=== PATIENT | male | born 1980 | race American Indian/Alaskan Native ===

== ENCOUNTER 2020-07-05 10:11 | Emergency (ER) | payer SELFPAY ==
--- NOTE | 2020-07-05 10:15 | Emergency Department Report ---
Blank Doc - Documentation Documentation: 40-year-old male that presents with facial abscess. exam: induration noted on exam to right lower mandible area. This initial assessment/diagnostic orders/clinical plan/treatment(s) is/are subject to change based on patient's health status, clinical progression and re-assessment by fellow clinical providers in the ED. Further treatment and workup at subsequent clinical providers discretion. Patient/guardians urged not to elope from the ED as their condition may be serious if not clinically assessed and managed. Initial orders include: 1- Patient sent to [facility] for further evaluation and treatment
[2020-07-05 10:16] VITALS: BP 144/105
--- NOTE | 2020-07-05 10:41 | Emergency Department Report ---
Abscess Boil HPI - HPI Chief Complaint: Skin/Abscess/Foreign Body Stated Complaint: LUMP ON FACE Time Seen by Provider: 07/05/20 10:14 Duration: 2 Days Location: Other (Right mandible) History: Yes Pain, Yes Purulent Drainage, No Fever, No Numbness, No Foreign Body, No Previous History, No Insect Bite HPI: The patient was evaluated in the emergency department for symptoms described in the history of present illness. He/she was evaluated in the context of the global COVID-19 pandemic, which necessitated consideration that the patient might be at risk for infection with the virus that causes COVID-19. Institutional protocols and algorithms that pertain to the evaluation of patients at risk for COVID-19 are in a state of rapid change based on information released by regulatory bodies including the CDC and federal and state organizations. These policies and algorithms were followed during the patient's care in the emergency department. Please note that these policies, procedures and recommendations changed on a rapid basis. 40-year-old - [place] male presents to the emergency room stating he has had a bump on his right lower jaw for years but this morning it started to drain purulent foul discharge. Patient denies any fever chills no nausea no vomiting. Home Medications: Previous Rx's Medication Instructions Recorded Last Taken Type Doxycycline Hyclate [Doxycycline 100 mg PO Q12HR 7 Days #14 tab 07/05/20 Unknown Rx Hyclate TAB] Allergies/Adverse Reactions: Allergies Allergy/AdvReac Type Severity Reaction Status Date / Time No Known Allergies Allergy Unverified 07/05/20 10:13 ED Review of Systems ROS: Stated complaint: LUMP ON FACE Other details as noted in HPI Comment: All other systems reviewed and negative ED Past Medical Hx - Past Medical History Previous Medical History?: No - Surgical History Past Surgical History?: No - Social History Smoking Status: Current Every Day Smoker Substance Use Type: Alcohol - Medications Home Medications: Home Medications Medication Instructions Recorded Confirmed Last Taken Type Doxycycline Hyclate [Doxycycline 100 mg PO Q12HR 7 Days #14 tab 07/05/20 Unknown Rx Hyclate TAB] ED Abscess Boil Physical Exam - Exam General: Vital signs noted. No distress. Alert and acting appropriately. Size: 3 cm Exam: Yes Tenderness, Yes Fluctuance, Yes Normal Neurologic Exam, Yes Normal Circulation, No Surrounding Cellulites/Erythema, No Lymphangitis, No Crepitation, No Heart Murmur I & D Note - I & D Note I & D Note: Abscess was draped with sterile dressing Betadine to abscess, lidocaine 1% without epi 3 cc to the fluctuant area used to bleed 15 to make a small incision able to express out thick cheesy foul-smelling discharge from the sebaceous gland. Sterile dressing placed patient tolerated well ED Course Vital Signs 07/05/20 10:15 Temperature 98.5 F Pulse Rate 88 Respiratory 18 Rate Blood Pressure 144/105 O2 Sat by Pulse 92 Oximetry Critical care attestation.: If time is entered above; I have spent that time in minutes in the direct care of this critically ill patient, excluding procedure time. ED Medical Decision Making - Medical Decision Making 40-year-old -[place] male presents to the emergency room stating he has had a bump on his right lower jaw for years but this morning it started to drain purulent foul discharge. Patient denies any fever chills no nausea no vomiting. ED Disposition Clinical Impression: Facial abscess Disposition: [id number] TO HOME OR SELFCARE Is pt being admited?: No Does the pt Need Aspirin: No Condition: Stable Instructions: Abscess (ED) Additional Instructions: Complete antibiotics as prescribed. Take Tylenol or ibuprofen as needed for pain. Dressing change twice a day. Prescriptions: Doxycycline Hyclate [Doxycycline Hyclate TAB] 100 mg PO Q12HR 7 Days #14 tab Referrals: [facility] [Provider Group] - 3-5 Days Forms: Work/School Release Form(ED)
[2020-07-05] MEDS: IBUPROFEN 600 MG TAB PO ONE ×2 (10:58)
[2020-07-05] MEDS ORDERED: LIDOCAINE-MPF (1%) 10 MG/1 ML VIAL 5 ML INFILTRATI ONE (11:27)
== END 2020-07-05 11:01 | disposition home or self-care (01) ==
LOC: ED 10:11
DX: L02.01 Cutaneous abscess of face (principal); F17.200 Nicotine dependence, unspecified, uncomplicated; Z79.899 Other long term (current) drug therapy
CPT/HCPCS: 99282